=== PATIENT | female | born 1985 | race Two or more races ===

== ENCOUNTER 2021-07-02 10:37 | Emergency (ER) | payer OTHER, SELFPAY ==
[2021-07-02 11:03] VITALS: BP 119/71; PULSE 64; RESP 18; TEMP 37.3; O2SAT 96; BMI 34.7
--- NOTE | 2021-07-02 11:41 | ED_ITS ---
HPI - Skin/Abscess/Foreign Bdy General Chief complaint: Skin/Abscess/Foreign Body Stated complaint: rash Source: patient Mode of arrival: ambulatory Limitations: no limitations History of Present Illness HPI narrative: Patient presents ED for scaly rash on back, chest, and upper part of her extremities. Patient denies any fever chills. Patient describes rash as dry, itchy, some redness, scaling. Patient denies any new cosmetics, any allergy to medications. Patient denies any swelling of lips or tongue. Related Data Previous Rx's Medication Instructions Recorded hydroxyzine HCl 25 mg tablet 25 mg PO TID PRN #15 tab 07/02/21 triamcinolone acetonide 0.025 % 1 appl TOPICAL BID 14 Days #60 ml 07/02/21 lotion Allergies Allergy/AdvReac Type Severity Reaction Status Date / Time No Known Allergies Allergy Verified 07/02/21 11:02 Review of Systems Review of Systems: Yes all other systems are reviewed and are negative Constitutional: Constitutional: Reports as per HPI and Reports no additional constitutional complaints Eyes: Eyes: Reports as per HPI and Reports no additional eye complaints ENT: Reports system reviewed and no additional complaints, except as documented and Reports as per HPI Cardiovascular: Cardiovascular: Reports as per HPI and Reports no additional cardiovascular complaints Respiratory: Respiratory: Reports as per HPI and Reports no additional respiratory complaints Gastrointestinal: Gastrointestinal: Reports no additional gastrointestinal complaints Musculoskeletal: Musculoskeletal: Reports no additional musculoskeletal complaints and Reports as per HPI Integumentary/Breasts: Skin/Breast: Reports dry skin Comments: Itchy rash Psychiatric: Psychiatric: Reports no additional psychiatric complaints and Reports as per HPI [facility] Past Medical History Medical History (Updated 07/02/21 @ 11:57 by ANNE Felix) Patient denies medical problems Social History Social History Advance Directives: No Patient : No Physical Exam Vital Signs: Vital Signs: Last Vital Signs Temp 99.1 F 07/02/21 11:03 Pulse 64 07/02/21 11:03 Resp 18 07/02/21 11:03 BP 119/71 07/02/21 11:03 Pulse Ox 96 07/02/21 11:03 Body Mass Index 34.7 Const: General: cooperative, healthy appearing, comfortable, no acute distress, well developed, alert and awake Orientation/consciousness: patient oriented x3 HENMT: Head: Yes normal to inspection and Yes No palpable skull fracture present Eyes: General: appearance normal, both eyes and all related structures Neck: Neck: Yes normal visual inspection, Yes full ROM, Yes no lymphadenopathy, Yes no meningeal signs, Yes trachea midline, Yes supple and No tender Chest: Chest palpation & inspection: normal inspection of the chest Resp: Effort & Inspection: normal respiratory effort and able to speak in complete sentences Auscultation: clear to auscultation bilaterally Cardio: Jugular venous distension: no JVD Heart sounds: S1 normal heart sound present and S2 normal heart sound present GI: Inspection: Yes normal to inspection and No abdominal wall ecchymosis P alpation (GI): Soft to palpation, not firm, nontender, no guarding and not rigid : General: No CVA tenderness and Yes no CVA tenderness Back/Spine/Pelvis: Back: no CVA tenderness, No CVA tenderness and No back tenderness Skin: Other: Rash indicates psoriasis General skin exam: no rashes or lesions noted and elasticity normal Neuro: General: patient oriented x3, no meningeal signs and CN's II-XI intact bilaterally Cranial nerves: Yes CN's II-XII intact bilaterally Extrem: General: Yes normal to inspection and Yes full ROM Psych: Appearance: grossly normal, well kempt and not disheveled Course Course Course Narrative: History physical exam indicates psoriasis. Reevaluation(s) Reevaluation #1: Patient will be discharged with high-dose topical steroids. Patient has own ground support equipment mechanic follow-up with Time: 11:54 MDM - Skin/Abscess/Foreign Bdy MDM Narrative Medical decision making narrative: Psoriasis Discharge Plan Discharge Clinical Impression: Psoriasis Patient Disposition: Home, Self-Care Instructions: Psoriasis (ED) Additional Instructions: Return to the ED for worsening rash, swelling of lips, shortness of breath, fever, chills, nausea, vomiting, or diarrhea, sensation of throat closing, or any other concerning symptoms. Please follow-up with your ground support equipment mechanic. Prescriptions: New triamcinolone acetonide 0.025 % lotion 1 appl topical BID 14 Days Qty: 60 RF: 0 hydroxyzine HCl 25 mg tablet 25 mg PO TID PRN (Reason: itching) Qty: 15 RF: 0 Interventions: ED Discharge Assessment Last Done: 07/02/21 12:18 Discharge Date/Time: 07/02/21 12:20 Print Language: Ukrainian
== END 2021-07-02 12:20 | disposition home or self-care (01) ==
PROVIDERS: Emergency Provider Emergency Medicine; PCP Pediatrics
DX: L40.9 Psoriasis, unspecified (principal); Z79.899 Other long term (current) drug therapy
CPT/HCPCS: 99283